=== PATIENT | male | born 1975 | race Caucasian/White ===

== ENCOUNTER 2022-04-10 02:10 | Emergency (ER) | payer OTHER ==
[2022-04-10] MEDS ORDERED: Pepcid 20 MG PO ONE (02:25)
[2022-04-10] MEDS ORDERED: solu-MEDROL 125 MG, Sterile H2O 10 ml 2 ML IV ONE ×2 (02:25)
[2022-04-10] MEDS ORDERED: solu-MEDROL ONE (02:28)
[2022-04-10] MEDS ORDERED: Pepcid 20 MG ONE (02:28)
[2022-04-10] MEDS ORDERED: Sodium Chloride 0.9% 1000 ML 1,000 ML ONE (02:28)
[2022-04-10] MEDS ORDERED: Sodium Chloride 0.9% 1000 ML 1,000 ML IV SCH (02:30)
--- NOTE | 2022-04-10 02:54 | ERPHSYRPT ---
- History of Present Illness Time Seen by Provider: 04/10/22 02:30 Source: patient, family Exam Limitations: no limitations Patient Subjective Stated Complaint: pt states "I started feeling itchy right before bed." Triage Nursing Assessment: pt presents to ED with complaints of itchy and reddened skin on bilateral arms, ears and neck, pt is in no respiratory distress, lung sounds clear, pt denies any new exposure to meds, body wash, cologne, etc. pt denies sob or chest pain Physician History: Patient is a 46-year-old white male who presents with an allergic reaction. He has primarily itching of the ears and of the forearms. He has developed a faint rash especially on the left forearm. For the last 2 days at least he has had no new medicines and knows of no exposures except potentially from his dog. He denies any difficulty swallowing or breathing. Onset was approximately 6 hours ago Timing/Duration: hour(s) (6) Quality: itchy Severity: mild Location: extremities, other (Both ears) Possible Causes: no cause identified Modifying Factors: Improves With: antihistamine Associated Symptoms: rash Allergies/Adverse Reactions: aspirin Allergy (Mild, Verified 02/19/22 13:25) Rash bupropion [From Wellbutrin] Allergy (Mild, Verified 04/10/22 02:18) Home Medications: Atorvastatin Calcium 20 mg PO DAILY 04/10/22 [History] Cholecalciferol (Vitamin D3) [Vitamin D3] 50 mcg PO DAILY 04/10/22 [History] Dulaglutide [Trulicity] 4.5 mg IM WEEKLY 04/10/22 [History] Famotidine 20 mg [Pepcid 20 MG] 20 mg PO DAILY 04/10/22 [History] Glipizide 5 mg [Glucotrol 5 MG] 5 mg PO DAILY 04/10/22 [History] Omeprazole 40 mg PO DAILY 04/10/22 [History] Hx Tetanus, Diphtheria Vaccination/Date Given: No Hx Influenza Vaccination/Date Given: No Hx Pneumococcal Vaccination/Date Given: No Immunizations Up to Date: Yes Travel Risk - International Travel Have you traveled outside of the country in past 3 weeks: No - Coronavirus Screening Are you exhibiting any of the following symptoms?: No Close contact with a COVID-19 positive Pt in past 14-21 Days: No - Vaccine Status Have you recieved a Covid-19 vaccination: Yes Manager Services: Moderna - Vaccination Dates Date of 2cond Vaccination (if applicable): 2020 - Review of Systems Constitutional: No Fever, No Chills Eyes: No Symptoms Ears, Nose, & Throat: No Symptoms Respiratory: No Cough, No Dyspnea Cardiac: No Chest Pain, No Edema, No Syncope Abdominal/Gastrointestinal: No Abdominal Pain, No Nausea, No Vomiting, No Diarrhea Genitourinary Symptoms: No Dysuria Musculoskeletal: No Back Pain, No Neck Pain Skin: Rash Neurological: No Dizziness, No Focal Weakness, No Sensory Changes Psychological: No Symptoms Endocrine: No Symptoms All Other Systems: Reviewed and Negative - Past Medical History Pertinent Past Medical History: Yes Neurological History: No Pertinent History ENT History: No Pertinent History Cardiac History: No Pertinent History Respiratory History: No Pertinent History Endocrine Medical History: Diabetes Type II Musculoskeletal History: No Pertinent History GI Medical History: No Pertinent History History: No Pertinent History Psycho-Social History: No Pertinent History Male Reproductive Disorders: No Pertinent History - Past Surgical History Past Surgical History: Yes Neuro Surgical History: No Pertinent History Cardiac: No Pertinent History Respiratory: No Pertinent History Gastrointestinal: No Pertinent History Genitourinary: No Pertinent History Male Surgical History: No Pertinent History Other Surgical History: RIGHT KNEE SURGERY X 2 - Social History Smoking Status: Never smoker Exposure to second hand smoke: No Drug Use: none Patient Lives Alone: No - Nursing Vital Signs Nursing Vital Signs: Initial Vital Signs Temperature 98.8 F 04/10/22 02:21 Pulse Rate 74 04/10/22 02:21 Respiratory Rate 16 04/10/22 02:21 Blood Pressure 163/110 04/10/22 02:21 O2 Sat by Pulse Oximetry 100 04/10/22 02:21 Pain Scale Pain Intensity 3 - Physical Exam General Appearance: mild distress, alert Eye Exam: PERRL/EOMI, eyes nml inspection Ears, Nose, Throat Exam: normal ENT inspection, pharynx normal, moist mucous membranes, other (External ears are somewhat red and warm.) Neck Exam: normal inspection, non-tender, supple, full range of motion Respiratory Exam: normal breath sounds, lungs clear, No respiratory distress Cardiovascular Exam: regular rate/rhythm, normal heart sounds Gastrointestinal/Abdomen Exam: soft, mass, No tenderness Back Exam: normal inspection, normal range of motion, No CVA tenderness, No vertebral tenderness Extremity Exam: normal inspection, normal range of motion Neurologic Exam: alert, oriented x 3, cooperative, normal mood/affect, sensation nml, No motor deficits Skin Exam: normal color, warm, dry, rash (Macular papular rash blanches with pressure especially the left forearm) SpO2 Interpretation: normal SpO2: 99 O2 Delivery: Room Air - Course Nursing assessment & vital signs reviewed: Yes Ordered Tests: Active Orders 24 hr Category Date Time Status IV Insertion STAT Care 04/10/22 02:25 Active Medication Summary Generic Name Dose Route Start Last Admin Trade Name Freq PRN Reason Stop Dose Admin Sodium Chloride 1,000 mls @ 100 mls/hr 04/10/22 02:30 04/10/22 02:35 Sodium Chloride 0.9% 1000 Ml IV 05/10/22 02:29 100 mls/hr .Q10H KRISTINA Administration Discontinued Medications Generic Name Dose Route Start Last Admin Trade Name Freq PRN Reason Stop Dose Admin Methylprednisolone Sodium 0 mg 04/10/22 02:25 04/10/22 02:34 Succinate 125 mg/ Sterile IV 04/10/22 02:26 125 mg Water 2 ml STAT ONE Administration Famotidine 40 mg 04/10/22 02:25 04/10/22 02:35 Famotidine 20 Mg Tablet PO 04/10/22 02:26 40 mg STAT ONE Administration Famotidine Confirm 04/10/22 02:28 Famotidine 20 Mg Tablet Administered 04/10/22 02:29 Dose 40 mg .ROUTE .STK-MED ONE Methylprednisolone Sodium Succinate Confirm 04/10/22 02:28 Methylprednis Sod Succ 125 Mg/2 Ml Vial Administered 04/10/22 02:29 Dose 125 mg .ROUTE .STK-MED ONE - Progress Progress: unchanged - Departure Departure Disposition: Home Clinical Impression: Contact dermatitis Condition: Stable Critical Care Time: No Referrals: AMAURY SOTELO NP [Primary Care Provider] - Follow up/PCP as directed Instructions: Contact Dermatitis (DC) Prescriptions: Prednisone 10 mg [Deltasone 10 mg] 20 mg PO BID 3 Days #12 tablet Famotidine 20 mg [Pepcid 20 MG] 20 mg PO BID 5 Days #10 tablet
[2022-04-10 03:31] VITALS: BP 136/81
[2022-04-10 03:47] VITALS: PULSE 78; O2SAT 99
== END 2022-04-10 03:48 | disposition home or self-care (01) ==
LOC: ED 02:10
DX: L25.9 Unspecified contact dermatitis, unspecified cause (principal); E11.9 Type 2 diabetes mellitus without complications; Z79.84 Long term (current) use of oral hypoglycemic drugs; Z79.899 Other long term (current) drug therapy; Z79.52 Long term (current) use of systemic steroids
CPT/HCPCS: 36000; 96374; 99284; J2930; A9270-GY

== ENCOUNTER 2023-05-13 02:34 | Emergency (ER) | payer OTHER ==
[2023-05-13] MEDS ORDERED: Augmentin 875-125 Tablet PO ONE (02:58)
[2023-05-13] MEDS ORDERED: Augmentin 875-125 Tablet ONE (03:01)
--- NOTE | 2023-05-13 03:01 | ERPHSYRPT ---
- History of Present Illness Time Seen by Provider: 05/13/23 02:50 Source: patient Exam Limitations: no limitations Patient Subjective Stated Complaint: pt states he has had a toothache for the past 3-4 days but the swelling started yesterday Triage Nursing Assessment: pt ambulated into the er; pt is axo x4; c/o toothache; swelling present to rt side of face; multiple broken teeth present; caries present; hypertension; no respriatory distress present; skin PDW Physician History: Patient is a 47-year-old male presents to our ED for evaluation of right maxillary molar pain. Pain has been ongoing for 3 to 4 days. Patient has been managing it with Tylenol. Pain is manageable with Tylenol. Patient declined additional pain medication. Last Tylenol dose was at 11 PM this evening. Patient resting comfortably. Patient has swelling to his right cheek x1 day. No trauma. No fever. No headache. No nausea vomiting or diaphoresis. Symptoms are mild in intensity. Pain worse with mastication. Pain improved wit h rest. Significant other at bedside. They voiced no other complaints or concerns at this time. Portions of this note were created with voice recognition technology. There may be grammatical, spelling, punctuation or sound alike errors Timing/Duration: day(s) (2 to 3 days) Severity: moderate Modifying Factors: Improves With: nothing Associated Symptoms: denies symptoms Allergies/Adverse Reactions: aspirin Allergy (Mild, Verified 05/13/23 02:38) Rash bupropion [From Wellbutrin] Allergy (Mild, Verified 05/13/23 02:38) Hx Tetanus, Diphtheria Vaccination/Date Given: No Hx Influenza Vaccination/Date Given: No Hx Pneumococcal Vaccination/Date Given: No Travel Risk - International Travel Have you traveled outside of the country in past 3 weeks: No - Coronavirus Screening Are you exhibiting any of the following symptoms?: No Close contact with a COVID-19 positive Pt in past 14-21 Days: No - Vaccine Status Have you recieved a Covid-19 vaccination: Yes [employer]: Moderna - Vaccination Dates Date of 2cond Vaccination (if applicable): 2020 - Review of Systems Constitutional: No Symptoms, No Fever, No Chills Eyes: No Symptoms Ears, Nose, & Throat: No Symptoms Respiratory: No Symptoms, No Cough, No Dyspnea Cardiac: No Symptoms, No Chest Pain, No Edema, No Syncope Abdominal/Gastrointestinal: No Symptoms, No Abdominal Pain, No Nausea, No Vomiting, No Diarrhea Genitourinary Symptoms: No Symptoms, No Dysuria Musculoskeletal: No Symptoms, No Back Pain, No Neck Pain Skin: No Symptoms, No Rash Neurological: No Symptoms, No Dizziness, No Focal Weakness, No Sensory Changes Psychological: No Symptoms Endocrine: No Symptoms Hematologic/Lymphatic: No Symptoms Immunological/Allergic: No Symptoms All Other Systems: Reviewed and Negative - Past Medical History Pertinent Past Medical History: Yes Neurological History: No Pertinent History ENT History: No Pertinent History Cardiac History: High Cholesterol, Hypertension Respiratory History: No Pertinent History Endocrine Medical History: Diabetes Type II Musculoskeletal History: No Pertinent History GI Medical History: GERD History: No Pertinent History Psycho-Social History: Depression Male Reproductive Disorders: No Pertinent History - Past Surgical History Past Surgical History: Yes Neuro Surgical History: No Pertinent History Cardiac: No Pertinent History Respiratory: No Pertinent History Gastrointestinal: No Pertinent History Genitourinary: No Pertinent History Musculoskeletal: Orthopedic Surgery Male Surgical History: No Pertinent History Other Surgical History: RIGHT KNEE SURGERY X 2 - Social History Smoking Status: Smoker, status unknown Exposure to second hand smoke: No Drug Use: none Patient Lives Alone: No - Nursing Vital Signs Nursing Vital Signs: Initial Vital Signs Temperature 96.8 F 05/13/23 02:40 Pulse Rate 64 05/13/23 02:40 Respiratory Rate 18 05/13/23 02:40 Blood Pressure 156/111 05/13/23 02:40 O2 Sat by Pulse Oximetry 98 05/13/23 02:40 Pain Scale Pain Intensity 4 - Physical Exam General Appearance: no apparent distress, alert Eye Exam: PERRL/EOMI, eyes nml inspection Ears, Nose, Throat Exam: normal ENT inspection, TMs normal, pharynx normal, moist mucous membranes, other (Carious tooth #3 with swelling of gingiva consistent with abscess formation. No sublingual swelling. Uvula midline.) Neck Exam: normal inspection, non-tender, supple, full range of motion Respiratory Exam: normal breath sounds, lungs clear, airway intact, No respiratory distress Cardiovascular Exam: regular rate/rhythm, normal heart sounds, normal peripheral pulses Gastrointestinal/Abdomen Exam: soft, normal bowel sounds, No tenderness, No mass Back Exam: normal inspection, normal range of motion, No CVA tenderness, No vertebral tenderness Extremity Exam: normal inspection, normal range of motion, pelvis stable Neurologic Exam: alert, oriented x 3, cooperative, normal mood/affect, nml cerebellar function, nml station & gait, sensation nml, No motor deficits Skin Exam: normal color, warm, dry, No rash Lymphatic Exam: No adenopathy SpO2 Interpretation: normal SpO2: 98 O2 Delivery: Room Air - Course Nursing assessment & vital signs reviewed: No Ordered Tests: Medication Summary Discontinued Medications Generic Name Dose Route Start Last Admin Trade Name Mariana PRN Reason Stop Dose Admin Amoxicillin/Clavulanate Potassium 875 mg 05/13/23 02:58 Amox Tr/Potassium Clavulanate 875 Mg Tablet PO 05/13/23 02:59 STAT ONE - Progress Progress: improved Progress Note: Patient is a 47-year-old male presents with 2-day history of dental pain and 1 day history of cheek swelling. Physical exam reveals a dental abscess with carious teeth. Patient declined pain medication. Patient received a dose of Augmentin in our ED. A prescription for the same was forwarded to patient's pharmacy. Patient will follow-up with his dentist within 48 hours. Complexity of problem addressed is low acute uncomplicated Complexity data reviewed and analyzed is none. Diagnosis made based on history and physical exam. Risk of complication and or risk morbidity/mortality patient management is moderate. Patient received a dose of oral antibiotic in our ED. A prescription for the same was forwarded to patient's pharmacy. We will discharge home. Plan of care established via shared decision making. Vital stable. Plan to discharge patient is approximately 10 to 15 minutes. No social determinants of health present to impede follow-up. Significant other at bedside. They voiced no other complaints or concerns at this time. Portions of this note were created with voice recognition technology. There may be grammatical, spelling, punctuation or sound alike errors 05/13/23 03:06 Counseled pt/family regarding: diagnosis, need for follow-up - Departure Departure Disposition: Home Clinical Impression: Pain, dental, Dental abscess Condition: Stable Critical Care Time: No Referrals: AMAURY SOTELO, [facility] [Primary Care Provider] - Follow up/PCP as directed Additional Instructions: Discharge/Care Plan PETER AMADOR JR IRAIS was seen on 05/13/23 in the Emergency Room. The patient was counseled regarding Diagnosis,Lab results, Imaging studies, need for follow up and when to return to the Emergency Room. Prescriptions given: Discharge Note I have spoken with the patient and/or caregivers. I have explained the patient's condition, diagnosis and treatment plan based on the information available to me at this time. I have answered the patient's and/or caregiver's questions and addressed any concerns. The patient and/or caregivers have as good understanding of the patient's diagnosis, condition and treatment plan as can be expected at this point. The vital signs have been stable. The patient's condition is stable and appropriate for discharge from the emergency department. The patient will pursue further outpatient evaluation with the primary care physician or other designated or consulting physician as outlined in the discharge instructions. The patient and/or caregivers are agreeable to this plan of care and follow-up instructions have been explained in detail. The patient and/or caregivers have received these instruction. The patient/and or caregivers are aware that any significant change in condition or worsening of symptoms should prompt an immediate return to this or the closest emergency department or call 911. Prescriptions: Amox Tr/Potass Clav. 875 mg [Augmentin 875-125 Tablet] 875 mg PO BID 7 Days #14 tablet
[2023-05-13 03:06] VITALS: BP 145/77; PULSE 59
[2023-05-13 03:08] VITALS: O2SAT 98
== END 2023-05-13 03:12 | disposition home or self-care (01) ==
LOC: ED 02:34
DX: K04.7 Periapical abscess without sinus (principal); K08.89 Other specified disorders of teeth and supporting structures; E78.5 Hyperlipidemia, unspecified; I10 Essential (primary) hypertension; E11.9 Type 2 diabetes mellitus without complications
CPT/HCPCS: 99281; A9270-GY